=== PATIENT | female | born 1955 | race Caucasian/White ===

== ENCOUNTER 2017-04-16 08:12 | Outpatient (CLI) | payer MEDICARE ==
[2015-10-20 09:48] VITALS: BMI 47.1
[~2017-04-16 08:12] MED LIST: HYDROCODONE-APA1 TAB PO; MULTIPLE VITAMI1 TA1 PO
== END 2017-04-16 10:42 ==
LOC: D.MAMMO 08:12
DX: Z12.31 Encounter for screening mammogram for malignant neoplasm of breast (principal)

== ENCOUNTER 2019-05-11 08:00 | Outpatient (CLI) | payer MEDICARE ==
[2015-10-20 09:48] VITALS: BMI 47.1
== END 2019-05-11 16:50 | disposition home or self-care (01) ==
LOC: D.MAMMO 08:00
PROVIDERS: ATTEND Family Medicine
DX: Z12.31 Encounter for screening mammogram for malignant neoplasm of breast (principal)

== ENCOUNTER → 2019-09-14 12:21 | Outpatient (CLI) | payer MEDICARE ==
[2015-10-20 09:48] VITALS: BMI 47.1
== END | disposition home or self-care (01) ==
LOC: D.HCCECHO 12:21 → D.HCCARDIO 13:30
PROVIDERS: ATTEND Internal Medicine Cardiovascular Disease
DX: I08.1 Rheumatic disorders of both mitral and tricuspid valves (principal)

== ENCOUNTER 2021-01-09 15:45 | Outpatient (CLI) | payer MEDICARE ==
[2015-10-20 09:48] VITALS: BMI 47.1
== END 2021-01-09 23:59 | disposition home or self-care (01) ==
LOC: D.MAMMO 15:45
PROVIDERS: ATTEND Family Medicine
DX: Z12.31 Encounter for screening mammogram for malignant neoplasm of breast (principal)